=== PATIENT | female | born 1990 | race Caucasian/White ===

== ENCOUNTER 2020-08-02 20:12 | Emergency (ER) | payer OTHER ==
[~2020-08-02] VITALS: Ht 165.1 cm; Wt 84.0 kg
[2020-08-02] MEDS ORDERED: methylPREDNISolone 125MG 2ML VIAL IV ONE (22:45)
[2020-08-02 23:03] LABS: BASO % 0.5 % (0.0-1.0); EOS # 0.2 10^3/uL (0.0-0.5); HEMATOCRIT 46.2 % (36.0-47.0); HEMOGLOBIN 14.9 g/dl (12.0-15.5); LYMPH # 1.7 10^3/uL (1.5-5.0); LYMPH % 43.6 % (24.0-44.0); MEAN CORPUSCULAR HEMOGLOBIN 29.6 pg (27.0-33.0); MEAN CORPUSCULAR HGB CONC 32.3 g/dl (32.0-36.5); MEAN CORPUSCULAR VOLUME 91.8 fl (80.0-96.0); MONO # 0.4 10^3/uL (0.0-0.8); MONO % 9.4 % (2.0-8.0); NEUTROPHILS # 1.6 10^3/uL (1.5-8.5); NEUTROPHILS % 40.2 % (36.0-66.0); PLATELET COUNT, AUTOMATED 312 10^3/uL (150-450); RED BLOOD COUNT 5.03 10^6/uL (4.00-5.40); WHITE BLOOD COUNT 3.9 10^3/uL (4.0-10.0)
[2020-08-02] MEDS ORDERED: NS 500 ML IV ONE (23:05)
[2020-08-02 23:21] LABS: ERYTHROCYTE SEDIMENTATION RATE 4 mm/hr (0-20)
[2020-08-02 23:28] LABS: BLOOD UREA NITROGEN 11 MG/DL (7-18); CALCIUM LEVEL 9.2 MG/DL (8.5-10.1); CARBON DIOXIDE LEVEL 30 MEQ/L (21-32); CHLORIDE LEVEL 106 MEQ/L (98-107); CREATININE FOR GFR 0.74 MG/DL (0.55-1.30); GLOMERULAR FILTRATION RATE > 60.0 (>60); GLUCOSE, FASTING 78 MG/DL (70-100); POTASSIUM SERUM 3.8 MEQ/L (3.5-5.1); SODIUM LEVEL 140 MEQ/L (136-145)
[2020-08-02 23:32] LABS: HCG, SERUM QUALITATIVE NEGATIVE (NEGATIVE)
[2020-08-02 23:52] VITALS: BP 127/77
[2020-08-03] MEDS ORDERED: HYDR-3363 PO (00:22)
[2020-08-03] MEDS ORDERED: PRED20TA PO (00:22)
== END 2020-08-03 00:28 | disposition home or self-care (01) ==
LOC: M ED 20:12
DX: L25.9 Unspecified contact dermatitis, unspecified cause (principal)
CPT/HCPCS: 80048; 84703; 85025; 85652; 86140; 96374; 99283; J2930

== ENCOUNTER 2020-08-16 07:43 | Emergency (ER) | payer OTHER ==
[~2020-08-16] VITALS: Ht 165.1 cm; Wt 87.4 kg
[~2020-08-16 07:43] MED LIST: HYDR-3363 PO; PRED20TA PO
[2020-08-16] MEDS ORDERED: IBUP-1022 PO (07:54)
[2020-08-16] MEDS ORDERED: diphenhydrAMINE 50MG CAP PO ONE (08:15)
[2020-08-16] MEDS ORDERED: NS 1,000 ML IV ONE (08:20)
[2020-08-16] MEDS ORDERED: FAMOTIDINE 20 MG TAB PO ONE (08:20)
[2020-08-16] MEDS ORDERED: methylPREDNISolone 125MG 2ML VIAL IV ONE (08:20)
[2020-08-16 10:14] VITALS: BP 127/71
[2020-08-16] MEDS ORDERED: EPIP0.3I2 IM (10:16)
[2020-08-16] MEDS ORDERED: MEDR4PAK PO (10:25)
== END 2020-08-16 10:35 | disposition home or self-care (01) ==
LOC: M ED 07:43
DX: L56.3 Solar urticaria (principal)
CPT/HCPCS: 80047; 96361; 96374; 99284; J2930

== ENCOUNTER 2021-06-28 16:28 | Emergency (ER) | payer OTHER ==
[~2021-06-28] VITALS: Ht 165.1 cm; Wt 95.5 kg
[~2021-06-28 16:28] MED LIST changes: +EPIP0.3I2 IM; +IBUP-1022 PO; +MEDR4PAK PO
[2021-06-28] MEDS ORDERED: MULTTAB20 PO (16:45)
[2021-06-29 02:35] VITALS: BP 118/93
== END 2021-06-29 02:37 | disposition home or self-care (01) ==
LOC: M ED 16:28
DX: O9A.213 Injury, poisoning and certain other consequences of external causes complicating pregnancy, third trimester (principal); S93.402A Sprain of unspecified ligament of left ankle, initial encounter; X58.XXXA Exposure to other specified factors, initial encounter; Z3A.30 30 weeks gestation of pregnancy

== ENCOUNTER 2021-08-28 17:05 | Outpatient (CLI) | payer OTHER ==
[~2021-08-28] VITALS: Ht 165.1 cm; Wt 94.9 kg
[2021-08-28] VITALS (10 sets, daily range): BP systolic 100–183; BP diastolic 59–106
[~2021-08-28 17:05] MED LIST changes: +MULTTAB20 PO
[2021-08-28 18:33] LABS: AMORPHOUS SEDIMENT SMALL (NEGATIVE); APPEARANCE, URINE CLOUDY (CLEAR); BACTERIA, URINE AUTO NEGATIVE (NEGATIVE); BILIRUBIN, URINE AUTO NEGATIVE (NEGATIVE); BLOOD, URINE BLOOD NEGATIVE (NEGATIVE); CALCIUM OXALATE CRYSTALS SMALL; COLOR, URINE YELLOW (YELLOW); GLUCOSE, URINE (UA) AUTO NEGATIVE (NEGATIVE); KETONE, URINE AUTO 1+ mg/dL (NEGATIVE); LEUKOCYTE ESTERASE, URINE AUTO NEGATIVE (NEGATIVE); MUCUS, URINE SMALL (NEGATIVE); NITRITE, URINE AUTO NEGATIVE (NEGATIVE); PROTEIN, URINE AUTO 1+ mg/dL (NEGATIVE); RBC, URINE AUTO 1 /HPF (0-3); SPECIFIC GRAVITY URINE AUTO 1.023 (1.002-1.035); SQUAMOUS EPITHELIAL CELL UR AU 3 /HPF (0-6); WBC, URINE AUTO 2 /HPF (0-3)
== END 2021-08-28 20:24 | disposition home or self-care (01) ==
LOC: M LDO 17:05
PROVIDERS: ATTEND Obstetrics & Gynecology
DX: O47.1 False labor at or after 37 completed weeks of gestation (principal); Z3A.38 38 weeks gestation of pregnancy; O34.211 Maternal care for low transverse scar from previous cesarean delivery
CPT/HCPCS: 59025; 81001; G0378; G0463

== ENCOUNTER 2021-09-03 05:40 | Inpatient (IN) | payer OTHER ==
[2021-09-03] VITALS (11 sets, daily range): BP systolic 104–182; BP diastolic 53–87
[~2021-09-03] VITALS: Ht 165.1 cm; Wt 99.9 kg
[2021-09-03] MEDS ORDERED: BICITRA 30ML SOLN UDC PO ONE (06:30)
[2021-09-03] MEDS ORDERED: LR 500 ML IV ONE (06:30)
[2021-09-03] MEDS ORDERED: ceFAZolin SOD 2 GM in IV 1 EA IV ONE (06:45)
[2021-09-03 06:47] LABS: HEMATOCRIT 32.1 % (36.0-47.0); HEMOGLOBIN 10.7 g/dl (12.0-15.5); MEAN CORPUSCULAR HEMOGLOBIN 30.7 pg (27.0-33.0); MEAN CORPUSCULAR HGB CONC 33.3 g/dl (32.0-36.5); MEAN CORPUSCULAR VOLUME 92.2 fl (80.0-96.0); PLATELET COUNT, AUTOMATED 245 10^3/uL (150-450); RED BLOOD COUNT 3.48 10^6/uL (4.00-5.40); WHITE BLOOD COUNT 4.6 10^3/uL (4.0-10.0)
[2021-09-03] MEDS ORDERED: BUPIVACAINE HCL 0.25% 10ML VIAL SC ONE (08:40)
[2021-09-03] MEDS: PRENATAL VITAMINS CHEWABLE TABLET PO SCH (09:00)
[2021-09-03] MEDS: DOCUSATE SODIUM 100MG CAPSULE PO SCH ×2 (09:00→20:03)
[2021-09-03] MEDS: LR 1,000 ML IV SCH ×5 (09:54→23:00)
[2021-09-03] MEDS ORDERED: OXYTOCIN INJ 10 UNITS/ML VIAL (J2590) As Ordered ONE (10:05)
[2021-09-03] MEDS ORDERED: KETOROLAC 60MG 2ML VIAL As Ordered ONE (10:05)
[2021-09-03] MEDS ORDERED: MORPHINE PRES-FREE INJ 10 MG/10 ML VIAL As Ordered ONE (10:05)
[2021-09-03 11:37] LABS: CORD GAS ABE V -1.5; CORD GAS HCO3 V 24.4 MEQ/L; CORD GAS O2 SAT V 75.3 %; CORD GAS PCO2 V 45.1 mmHg; CORD GAS PH V 7.351 UNITS; CORD GAS PO2 V 31.2 mmHg; CORD GAS SBC V 22.7 MEQ/L; CORD GAS TCO2 V 25.8 MEQ/L
[2021-09-03 11:38] LABS: CORD GAS ABE A -3.4; CORD GAS HCO3 A 24.6 MEQ/L; CORD GAS O2 SAT A 35.3 %; CORD GAS PCO2 A 55.9 mmHg; CORD GAS PH A 7.261 UNITS; CORD GAS PO2 A 18.7 mmHg; CORD GAS SBC A 20.2 MEQ/L; CORD GAS TCO2 A 26.3 MEQ/L
[2021-09-03] MEDS ORDERED: oxyCODONE 5MG TAB PO PRN ×2 (12:30→12:40)
[2021-09-03] MEDS ORDERED: METHYLERGONOVINE MALEATE 0.2 MG/ML VIAL (J2210) IM PRN (12:30)
[2021-09-03] MEDS ORDERED: ONDANSETRON 4MG 2ML VIAL IV PRN ×3 (12:30→12:40)
[2021-09-03] MEDS ORDERED: OXYTOCIN DRIP 30 UNITS in IV 1 EA IV SCH (12:30)
[2021-09-03] MEDS ORDERED: PROMETHAZINE 25 MG TAB PO PRN (12:30)
[2021-09-03] MEDS ORDERED: RHOGAM 300 MCG (1500 IU) INJ (J2790) IM SCH (12:30)
[2021-09-03] MEDS ORDERED: SIMETHICONE 80MG CHEW TAB PO PRN (12:30)
[2021-09-03] MEDS: SLF 3 ML SYR IV SCH ×2 (12:40→20:40)
[2021-09-03] MEDS ORDERED: **NOTE PATIENT COMMENT** MISC XX SCH (12:40)
[2021-09-03] MEDS ORDERED: fentaNYL 100 MCG/2 ML INJECTION IV PRN (12:40)
[2021-09-03] MEDS ORDERED: METOCLOPRAMIDE INJ 10MG/2ML VIAL (J2765 PER 1) IV PRN (12:40)
[2021-09-03] MEDS ORDERED: NALOXONE INJ 0.4MG/1ML VIAL (J2310 PER 1MG) IV PRN ×2 (12:40)
[2021-09-03] MEDS ORDERED: diphenhydrAMINE 50MG/ML VIAL (J1200) IV PRN (12:40)
[2021-09-03] MEDS ORDERED: OXYTOCIN 30 UNITS IN 0.9% NaCl 500ML IV BAG (J2590) As Ordered ONE (13:01)
[2021-09-03] MEDS ORDERED: ONDANSETRON 4MG 2ML VIAL As Ordered ONE (13:06)
[2021-09-03] MEDS: ACETAMINOPHEN 500 MG TAB PO SCH ×2 (14:23→20:03)
[2021-09-03] MEDS: KETOROLAC 30 MG/ML 1ML VIAL IV SCH (17:41)
[2021-09-04] MEDS: KETOROLAC 30 MG/ML 1ML VIAL IV SCH ×2 (00:12→06:09)
[2021-09-04] MEDS: LR 1,000 ML IV SCH (01:03)
[2021-09-04] MEDS: ACETAMINOPHEN 500 MG TAB PO SCH ×4 (01:03→19:47)
[2021-09-04 02:30] VITALS: BP 102/52
[2021-09-04] MEDS: SLF 3 ML SYR IV SCH (04:40)
[2021-09-04 06:00] VITALS: BP 104/51
[2021-09-04 06:36] LABS: HEMATOCRIT 25.1 % (36.0-47.0); MEAN CORPUSCULAR HEMOGLOBIN 30.6 pg (27.0-33.0); MEAN CORPUSCULAR HGB CONC 33.1 g/dl (32.0-36.5); MEAN CORPUSCULAR VOLUME 92.6 fl (80.0-96.0); PLATELET COUNT, AUTOMATED 218 10^3/uL (150-450); RED BLOOD COUNT 2.71 10^6/uL (4.00-5.40); WHITE BLOOD COUNT 6.8 10^3/uL (4.0-10.0)
[2021-09-04 06:40] LABS: HEMOGLOBIN 8.3 g/dl (12.0-15.5)
[2021-09-04] MEDS: PRENATAL VITAMINS CHEWABLE TABLET PO SCH (09:21)
[2021-09-04] MEDS: DOCUSATE SODIUM 100MG CAPSULE PO SCH ×2 (09:21→21:40)
[2021-09-04 10:00] VITALS: BP 90/47
[2021-09-04] MEDS: IBUPROFEN 800 MG TAB PO SCH ×2 (15:26→21:40)
[2021-09-04 18:00] VITALS: BP 118/55
[2021-09-04 22:00] VITALS: BP 124/67
[2021-09-05] MEDS: ACETAMINOPHEN 500 MG TAB PO SCH ×3 (01:02→13:59)
[2021-09-05 02:00] VITALS: BP 109/57
[2021-09-05] MEDS: oxyCODONE 5MG TAB PO PRN ×2 (05:44→14:00)
[2021-09-05] MEDS: IBUPROFEN 800 MG TAB PO SCH (05:44)
[2021-09-05 06:00] VITALS: BP 129/81
[2021-09-05] MEDS: DOCUSATE SODIUM 100MG CAPSULE PO SCH (08:14)
[2021-09-05] MEDS: PRENATAL VITAMINS CHEWABLE TABLET PO SCH (08:14)
[2021-09-05] MEDS ORDERED: MEASLES,MUMPS,RUBELLA VACCINE INJ (MMR-II) (90707) SC.IMMUN ONE (09:00)
[2021-09-05 10:00] VITALS: BP 115/56
== END 2021-09-05 15:50 | disposition home or self-care (01) | DRG 785 ==
LOC: M LDI 05:40 → M OBS 13:52 → OBSVTOIN 15:25
PROVIDERS: ADMIT Obstetrics & Gynecology; ATTEND Obstetrics & Gynecology
PROC: 0UT70ZZ Resection of Bilateral Fallopian Tubes, Open Approach (ICD-10-PCS; 2021-09-03)
PROC: 10D00Z1 Extraction of Products of Conception, Low, Open Approach (ICD-10-PCS; principal; 2021-09-03 07:30)
DX: O34.211 Maternal care for low transverse scar from previous cesarean delivery (principal); Z3A.39 39 weeks gestation of pregnancy; Z37.0 Single live birth; Z30.2 Encounter for sterilization

== ENCOUNTER → 2021-09-28 | Outpatient (REF) | payer OTHER | LOC: M LAB REF 16:12 | PROVIDERS: ATTEND Student in an Organized Health Care Education/Training Program | DX: R30.0 Dysuria (principal) ==

== ENCOUNTER 2022-06-01 03:12 | Emergency (ER) | payer OTHER ==
[~2022-06-01] VITALS: Ht 165.1 cm; Wt 86.7 kg
[2022-06-01] MEDS ORDERED: predniSONE 20 MG TAB PO ONE (06:20)
[2022-06-01 06:47] LABS: BASO % 0.7 % (0.0-1.0); EOS # 0.2 10^3/uL (0.0-0.5); EOS % 3.4 % (0.0-3.0); HEMATOCRIT 40.3 % (36.0-47.0); HEMOGLOBIN 13.2 g/dl (12.0-15.5); LYMPH # 2.3 10^3/uL (1.5-5.0); LYMPH % 50.9 % (24.0-44.0); MEAN CORPUSCULAR HEMOGLOBIN 29.9 pg (27.0-33.0); MEAN CORPUSCULAR HGB CONC 32.8 g/dl (32.0-36.5); MEAN CORPUSCULAR VOLUME 91.2 fl (80.0-96.0); MONO # 0.3 10^3/uL (0.0-0.8); MONO % 7.7 % (2.0-8.0); NEUTROPHILS # 1.6 10^3/uL (1.5-8.5); NEUTROPHILS % 37.1 % (36.0-66.0); PLATELET COUNT, AUTOMATED 216 10^3/uL (150-450); RED BLOOD COUNT 4.42 10^6/uL (4.00-5.40); WHITE BLOOD COUNT 4.4 10^3/uL (4.0-10.0)
[2022-06-01 07:03] LABS: ALBUMIN 4.1 G/DL (3.2-5.2); ALKALINE PHOSPHATASE 67 U/L (46-116); ALT/SGPT 35 U/L (7.0-40); AST/SGOT 21 U/L (<34); BILIRUBIN,TOTAL 0.7 MG/DL (0.3-1.2); BLOOD UREA NITROGEN 15 MG/DL (9-23); CALCIUM LEVEL 8.8 MG/DL (8.5-10.1); CARBON DIOXIDE LEVEL 29 MMOL/L (20-31); CHLORIDE LEVEL 105 MMOL/L (98-107); CREATININE FOR GFR 0.82 MG/DL (0.55-1.30); GLOMERULAR FILTRATION RATE > 60.0 (>60); GLUCOSE, FASTING 106 MG/DL (60-100); POTASSIUM SERUM 3.8 MMOL/L (3.5-5.1); SODIUM LEVEL 140 MMOL/L (136-145); TOTAL PROTEIN 7.8 G/DL (5.7-8.2)
[2022-06-01 07:06] LABS: THYROID STIMULATING HORMONE 3.773 uIU/ML (0.55-4.78)
[2022-06-01 07:16] LABS: HCG, SERUM QUALITATIVE NEGATIVE (NEGATIVE)
[2022-06-01 07:56] VITALS: BP 128/64
== END 2022-06-01 08:05 | disposition home or self-care (01) ==
LOC: M ED 03:12
DX: N93.8 Other specified abnormal uterine and vaginal bleeding (principal); L56.3 Solar urticaria
CPT/HCPCS: 36415; 76856; 80053; 81001; 84443; 84703; 85025; 87086; 99284; J7512

== ENCOUNTER → 2022-08-15 | Outpatient (REF) | payer OTHER | LOC: M LAB REF 09:52 | PROVIDERS: ATTEND Nurse Practitioner Family | DX: R30.0 Dysuria (principal); N39.0 Urinary tract infection, site not specified ==

== ENCOUNTER → 2022-12-06 | Outpatient (CLI) | payer OTHER ==
[2022-12-06 17:19] LABS: APPEARANCE, URINE CLEAR (CLEAR); BACTERIA, URINE AUTO NEGATIVE (NEGATIVE); BILIRUBIN, URINE AUTO NEGATIVE (NEGATIVE); BLOOD, URINE BLOOD 2+ (NEGATIVE); COLOR, URINE YELLOW (YELLOW); GLUCOSE, URINE (UA) AUTO NEGATIVE (NEGATIVE); KETONE, URINE AUTO NEGATIVE (NEGATIVE); LEUKOCYTE ESTERASE, URINE AUTO TRACE (NEGATIVE); NITRITE, URINE AUTO NEGATIVE (NEGATIVE); PROTEIN, URINE AUTO NEGATIVE (NEGATIVE); RBC, URINE AUTO 0 /HPF (0-3); SPECIFIC GRAVITY URINE AUTO 1.013 (1.002-1.035); SQUAMOUS EPITHELIAL CELL UR AU 6 /HPF (0-6); UROBILINOGEN, URINE AUTO 0.2 mg/dL (0.0-2.0); WBC, URINE AUTO 1 /HPF (0-3)
[2022-12-06 17:20] LABS: BASO % 0.4 % (0.0-1.0); EOS # 0.1 10^3/uL (0.0-0.5); EOS % 0.9 % (0.0-3.0); HEMATOCRIT 41.7 % (36.0-47.0); HEMOGLOBIN 14.3 g/dl (12.0-15.5); LYMPH % 25.8 % (24.0-44.0); MEAN CORPUSCULAR HEMOGLOBIN 31.2 pg (27.0-33.0); MEAN CORPUSCULAR HGB CONC 34.3 g/dl (32.0-36.5); MONO # 0.6 10^3/uL (0.0-0.8); MONO % 7.3 % (2.0-8.0); NEUTROPHILS % 65.5 % (36.0-66.0); PLATELET COUNT, AUTOMATED 237 10^3/uL (150-450); RED BLOOD COUNT 4.58 10^6/uL (4.00-5.40); WHITE BLOOD COUNT 7.6 10^3/uL (4.0-10.0)
[2022-12-06 17:41] LABS: TOTAL PROTEIN,RANDOM URINE 9.8 MG/DL (0.0-14.0)
[2022-12-06 17:46] LABS: CREATININE,RANDOM URINE 76.5 MG/DL
[2022-12-06 17:46] LABS: C REACTIVE PROTEIN QUANTITATIV < 0.40 MG/DL (<1.0)
[2022-12-06 17:47] LABS: BLOOD UREA NITROGEN 11 MG/DL (9-23); CALCIUM LEVEL 9.5 MG/DL (8.5-10.1); CARBON DIOXIDE LEVEL 28 MMOL/L (20-31); CHLORIDE LEVEL 101 MMOL/L (98-107); COMPLEMENT C3 137.6 MG/DL (84.0-160.0); COMPLEMENT C4 28.1 MG/DL (12-36); CREATININE FOR GFR 0.79 MG/DL (0.55-1.30); GLOMERULAR FILTRATION RATE > 60.0 (>60); GLUCOSE, FASTING 86 MG/DL (60-100); POTASSIUM SERUM 4.2 MMOL/L (3.5-5.1); SODIUM LEVEL 139 MMOL/L (136-145)
[2022-12-06 18:05] LABS: ERYTHROCYTE SEDIMENTATION RATE 13 mm/hr (0-20)
[2022-12-12 12:52] LABS: DRVV SCREEN 37.1 SECONDS
[2022-12-12 13:17] LABS: PTT LUPUS TYPE ANTICOAG SCREEN 0.91 (0-1.20)
== END ==
LOC: M LAB 16:25
PROVIDERS: ATTEND Internal Medicine
DX: M45.A0 Non-radiographic axial spondyloarthritis of unspecified sites in spine (principal)

== ENCOUNTER 2023-01-01 17:59 | Emergency (ER) | payer OTHER ==
[~2023-01-01] VITALS: Ht 165.1 cm; Wt 81.8 kg
[2023-01-01 19:07] LABS: BASO % 0.6 % (0.0-1.0); EOS # 0.2 10^3/uL (0.0-0.5); EOS % 3.9 % (0.0-3.0); HEMATOCRIT 41.7 % (36.0-47.0); HEMOGLOBIN 14.3 g/dl (12.0-15.5); LYMPH # 2.3 10^3/uL (1.5-5.0); LYMPH % 45.8 % (24.0-44.0); MEAN CORPUSCULAR HEMOGLOBIN 31.1 pg (27.0-33.0); MEAN CORPUSCULAR HGB CONC 34.3 g/dl (32.0-36.5); MEAN CORPUSCULAR VOLUME 90.7 fl (80.0-96.0); MONO # 0.4 10^3/uL (0.0-0.8); MONO % 7.7 % (2.0-8.0); NEUTROPHILS # 2.1 10^3/uL (1.5-8.5); NEUTROPHILS % 41.8 % (36.0-66.0); PLATELET COUNT, AUTOMATED 274 10^3/uL (150-450); WHITE BLOOD COUNT 5.1 10^3/uL (4.0-10.0)
[2023-01-01 19:38] LABS: LIPASE 38 U/L (12-53)
[2023-01-01 19:40] LABS: ALBUMIN 4.1 G/DL (3.2-5.2); ALKALINE PHOSPHATASE 65 U/L (46-116); ALT/SGPT 23 U/L (7.0-40); AST/SGOT 17 U/L (<34); BILIRUBIN,DIRECT 0.2 MG/DL (<0.4); BILIRUBIN,TOTAL 0.7 MG/DL (0.3-1.2); BLOOD UREA NITROGEN 9 MG/DL (9-23); CARBON DIOXIDE LEVEL 26 MMOL/L (20-31); CHLORIDE LEVEL 107 MMOL/L (98-107); CREATININE FOR GFR 0.78 MG/DL (0.55-1.30); GLOMERULAR FILTRATION RATE > 60.0 (>60); GLUCOSE, FASTING 93 MG/DL (60-100); POTASSIUM SERUM 4.2 MMOL/L (3.5-5.1); SODIUM LEVEL 139 MMOL/L (136-145); TOTAL PROTEIN 7.5 G/DL (5.7-8.2)
[2023-01-01] MEDS ORDERED: NS 1,000 ML IV ONE (19:40)
[2023-01-01] MEDS ORDERED: PANTOPRAZOLE 40MG VIAL IV ONE (19:40)
[2023-01-01] MEDS ORDERED: SUCRALFATE SUSP 1GM/10ML UD PO ONE (19:40)
[2023-01-01] MEDS ORDERED: ISOVUE-370 76% 100ML VIAL As Ordered ONE (19:45)
[2023-01-01 19:53] LABS: HCG, SERUM QUALITATIVE NEGATIVE (NEGATIVE)
[2023-01-01] MEDS ORDERED: SUCR1SS PO (21:38)
[2023-01-01] MEDS ORDERED: ONDA4TAB6 PO (21:38)
[2023-01-01] MEDS ORDERED: PANT40TA29 PO (21:38)
[2023-01-01 21:51] VITALS: BP 125/84; TEMP 98.1; O2SAT 100
== END 2023-01-01 21:53 | disposition home or self-care (01) ==
LOC: M ED 17:59
DX: K21.9 Gastro-esophageal reflux disease without esophagitis (principal); K59.00 Constipation, unspecified; J45.909 Unspecified asthma, uncomplicated
CPT/HCPCS: 74177; 80047; 80048; 80076; 83690; 84702; 84703; 85025; 96361; 96374; 99284; C9113; Q9967

== ENCOUNTER → 2023-04-23 | Outpatient (CLI) | payer OTHER ==
[~2023-04-23] MED LIST changes: +ONDA4TAB6 PO; +PANT40TA29 PO; +SUCR1SS PO
[2023-04-23 17:27] LABS: FREE T4 1.15 NG/DL (0.89-1.76); THYROID STIMULATING HORMONE 2.497 uIU/ML (0.55-4.78)
== END ==
LOC: M LAB 16:31
PROVIDERS: ATTEND Internal Medicine
DX: R76.8 Other specified abnormal immunological findings in serum (principal)

== ENCOUNTER → 2023-05-08 | Outpatient (CLI) | payer OTHER ==
[2023-05-08 17:42] LABS: APPEARANCE, URINE CLEAR (CLEAR); BACTERIA, URINE AUTO NEGATIVE (NEGATIVE); BILIRUBIN, URINE AUTO NEGATIVE (NEGATIVE); BLOOD, URINE BLOOD NEGATIVE (NEGATIVE); COLOR, URINE STRAW (YELLOW); GLUCOSE, URINE (UA) AUTO NEGATIVE (NEGATIVE); KETONE, URINE AUTO NEGATIVE (NEGATIVE); LEUKOCYTE ESTERASE, URINE AUTO TRACE (NEGATIVE); NITRITE, URINE AUTO NEGATIVE (NEGATIVE); PROTEIN, URINE AUTO NEGATIVE (NEGATIVE); RBC, URINE AUTO 0 /HPF (0-3); SQUAMOUS EPITHELIAL CELL UR AU 2 /HPF (0-6); UROBILINOGEN, URINE AUTO 0.2 mg/dL (0.0-2.0); WBC, URINE AUTO 0 /HPF (0-3)
== END ==
LOC: M LAB 16:58
PROVIDERS: ATTEND Internal Medicine
DX: R76.0 Raised antibody titer (principal)

== ENCOUNTER → 2024-01-27 | Outpatient (REF) ==
[~2024-01-27] MED LIST changes: +ONDA-282 PO; -ONDA4TAB6 PO
== END ==
LOC: M PLAIMG 14:59
PROVIDERS: ATTEND Internal Medicine
DX: R52 Pain, unspecified (principal)

== ENCOUNTER → 2024-03-12 | Outpatient (CLI) | payer OTHER ==
[2024-03-12 14:12] LABS: BASO % 0.4 % (0.0-1.0); EOS # 0.1 10^3/uL (0.0-0.5); EOS % 1.2 % (0.0-3.0); HEMATOCRIT 42.6 % (36.0-47.0); HEMOGLOBIN 14.6 g/dl (12.0-15.5); MEAN CORPUSCULAR HEMOGLOBIN 32.1 pg (27.0-33.0); MEAN CORPUSCULAR HGB CONC 34.3 g/dl (32.0-36.5); MEAN CORPUSCULAR VOLUME 93.6 fl (80.0-96.0); MONO # 0.4 10^3/uL (0.0-0.8); MONO % 7.1 % (2.0-8.0); NEUTROPHILS # 2.5 10^3/uL (1.5-8.5); NEUTROPHILS % 51.1 % (36.0-66.0); PLATELET COUNT, AUTOMATED 233 10^3/uL (150-450); RED BLOOD COUNT 4.55 10^6/uL (4.00-5.40)
[2024-03-12 14:17] LABS: ERYTHROCYTE SEDIMENTATION RATE 5 mm/hr (0-20)
[2024-03-12 14:43] LABS: C REACTIVE PROTEIN QUANTITATIV < 0.50 MG/DL (<1.0)
[2024-03-12 14:44] LABS: ALBUMIN 4.1 G/DL (3.2-5.2); ALKALINE PHOSPHATASE 56 U/L (35-104); ALT/SGPT 30 U/L (7.0-40); AST/SGOT 17 U/L (<34); BILIRUBIN,TOTAL 1.4 MG/DL (0.3-1.2); BLOOD UREA NITROGEN 17 MG/DL (9-23); CALCIUM LEVEL 9.4 MG/DL (8.5-10.1); CARBON DIOXIDE LEVEL 27 MMOL/L (20-31); CHLORIDE LEVEL 105 MMOL/L (98-107); CREATININE FOR GFR 0.88 MG/DL (0.55-1.30); GLOMERULAR FILTRATION RATE > 60.0 (>60); GLUCOSE, FASTING 80 MG/DL (60-100); POTASSIUM SERUM 4.1 MMOL/L (3.5-5.1); SODIUM LEVEL 141 MMOL/L (136-145); TOTAL PROTEIN 7.7 G/DL (5.7-8.2)
[2024-03-12 14:46] LABS: COMPLEMENT C3 164.8 MG/DL (84.0-160.0)
[2024-03-12 14:47] LABS: COMPLEMENT C4 25.3 MG/DL (12-36)
== END ==
LOC: M LAB 13:24
PROVIDERS: ATTEND Internal Medicine Rheumatology
DX: Z79.899 Other long term (current) drug therapy (principal); R76.8 Other specified abnormal immunological findings in serum

== ENCOUNTER → 2024-04-20 | Outpatient (CLI) | payer OTHER ==
[2024-04-20 12:23] LABS: HEMATOCRIT 42.8 % (36.0-47.0); HEMOGLOBIN 14.9 g/dl (12.0-15.5); MEAN CORPUSCULAR HEMOGLOBIN 32.7 pg (27.0-33.0); MEAN CORPUSCULAR HGB CONC 34.8 g/dl (32.0-36.5); MEAN CORPUSCULAR VOLUME 93.9 fl (80.0-96.0); PLATELET COUNT, AUTOMATED 212 10^3/uL (150-450); RED BLOOD COUNT 4.56 10^6/uL (4.00-5.40)
[2024-04-20 12:32] LABS: HEMOGLOBIN A1c 4.7 % (4.0-6.0)
[2024-04-20 12:48] LABS: ALBUMIN 4.2 G/DL (3.2-5.2); ALKALINE PHOSPHATASE 57 U/L (35-104); ALT/SGPT 27 U/L (7.0-40); AST/SGOT 17 U/L (<34); BILIRUBIN,TOTAL 1.3 MG/DL (0.3-1.2); BLOOD UREA NITROGEN 11 MG/DL (9-23); CALCIUM LEVEL 9.6 MG/DL (8.5-10.1); CARBON DIOXIDE LEVEL 28 MMOL/L (20-31); CHLORIDE LEVEL 106 MMOL/L (98-107); CHOLESTEROL LEVEL 129 MG/DL (<200); CHOLESTEROL RISK RATIO 2.62 (<5); CREATININE FOR GFR 0.84 MG/DL (0.55-1.30); GLOMERULAR FILTRATION RATE > 60.0 (>60); GLUCOSE, FASTING 85 MG/DL (60-100); HDL CHOLESTEROL 49.1 MG/DL (>40); LDL CHOLESTEROL 63.7 MG/DL (<100); NON-HDL-C 79.9 MG/DL; POTASSIUM SERUM 4.3 MMOL/L (3.5-5.1); SODIUM LEVEL 142 MMOL/L (136-145); TOTAL PROTEIN 7.7 G/DL (5.7-8.2); TRIGLYCERIDES LEVEL 81 MG/DL (<150)
[2024-04-20 12:50] LABS: THYROID STIMULATING HORMONE 2.432 uIU/ML (0.55-4.78)
== END ==
LOC: M LAB 10:56
PROVIDERS: ATTEND Student in an Organized Health Care Education/Training Program
DX: Z00.01 Encounter for general adult medical examination with abnormal findings (principal)

== ENCOUNTER → 2024-05-11 | Outpatient (CLI) | payer OTHER ==
[2024-05-11 17:05] LABS: HEMATOCRIT 42.4 % (36.0-47.0); HEMOGLOBIN 14.8 g/dl (12.0-15.5); MEAN CORPUSCULAR HEMOGLOBIN 32.7 pg (27.0-33.0); MEAN CORPUSCULAR HGB CONC 34.9 g/dl (32.0-36.5); MEAN CORPUSCULAR VOLUME 93.6 fl (80.0-96.0); PLATELET COUNT, AUTOMATED 161 10^3/uL (150-450); RED BLOOD COUNT 4.53 10^6/uL (4.00-5.40); WHITE BLOOD COUNT 3.6 10^3/uL (4.0-10.0)
[2024-05-11 17:11] LABS: ERYTHROCYTE SEDIMENTATION RATE 6 mm/hr (0-20)
[2024-05-11 17:23] LABS: ALKALINE PHOSPHATASE 70 U/L (35-104); ALT/SGPT 26 U/L (7.0-40); AST/SGOT 15 U/L (<34); BILIRUBIN,TOTAL 1.4 MG/DL (0.3-1.2); BLOOD UREA NITROGEN 10 MG/DL (9-23); C REACTIVE PROTEIN QUANTITATIV 1.49 MG/DL (<1.0); CALCIUM LEVEL 9.2 MG/DL (8.5-10.1); CARBON DIOXIDE LEVEL 30 MMOL/L (20-31); CHLORIDE LEVEL 106 MMOL/L (98-107); CHOLESTEROL LEVEL 133 MG/DL (<200); CHOLESTEROL RISK RATIO 2.49 (<5); GLOMERULAR FILTRATION RATE > 60.0 (>60); GLUCOSE, FASTING 111 MG/DL (60-100); HDL CHOLESTEROL 53.3 MG/DL (>40); LDL CHOLESTEROL 56.1 MG/DL (<100); NON-HDL-C 79.7 MG/DL; POTASSIUM SERUM 3.9 MMOL/L (3.5-5.1); SODIUM LEVEL 142 MMOL/L (136-145); TOTAL PROTEIN 7.3 G/DL (5.7-8.2); TRIGLYCERIDES LEVEL 118 MG/DL (<150)
[2024-05-11 17:24] LABS: RHEUMATOID FACTOR QUANT < 3.5 IU/ML (<14)
[2024-05-11 17:25] LABS: THYROID STIMULATING HORMONE 3.215 uIU/ML (0.55-4.78)
[2024-05-11 18:16] LABS: HEMOGLOBIN A1c 4.8 % (4.0-6.0)
== END ==
LOC: M LAB 16:17
PROVIDERS: ATTEND Student in an Organized Health Care Education/Training Program
DX: R74.8 Abnormal levels of other serum enzymes (principal)

== ENCOUNTER → 2024-10-14 | Outpatient (REF) | payer OTHER ==
[~2024-10-14] MED LIST changes: -IBUP-1022 PO; +IBUP600T42 PO
== END ==
LOC: M SFHCRHEU 14:34
PROVIDERS: ATTEND Internal Medicine
DX: Z79.899 Other long term (current) drug therapy (principal)